=== PATIENT | female | born 1940 | race Caucasian/White ===

== ENCOUNTER 2021-09-22 07:56 | Observation (INO) | payer MEDICARE, SELFPAY ==
[2021-09-22] VITALS (8 sets, daily range): BP systolic 147–155; BP diastolic 61–116; PULSE 86–106; RESP 16–20; TEMP 36.8–37.7; O2SAT 97–98; BMI 20.3
--- NOTE | ~2021-09-22 | CT_ITS ---
EXAMINATION: CT brain wo con DATE: 09/22/2021 08:55 INDICATION: Altered mental status. Fall. TECHNIQUE: Computed tomography (CT) of the head was performed without intravenous contrast. The mA wa s adjusted according to patient size. Iterative reconstruction technique was employed. The dose-lengt h product was 605.33 mGy-cm. COMPARISON: None FINDINGS: There are scattered areas of low attenuation in the cerebral white matter, which is within normal limits for the patient's age. There is no intracranial hemorrhage, acute infarction, or abnorm al intracranial mass lesion. The ventricles are normal in size. There are likely changes of ocular le ns replacement surgeries. There is mild mucosal thickening in the paranasal sinuses. The mastoid air cells are normal. IMPRESSION: 1. Normal aging brain. Reviewed, dictated and finalized at location A. IMPRESSION: 1. Normal aging brain.
--- NOTE | ~2021-09-22 | CT_ITS ---
EXAMINATION: CT cervical spine wo con DATE: 09/22/2021 08:55 INDICATION: Neck injury. Fall. TECHNIQUE: Computed tomography (CT) of the cervical spine was performed without intravenous contrast. Automated exposure control and iterative reconstruction technique were employed. The dose-length pro duct was 120.53 mGy-cm. COMPARISON: None FINDINGS: There is scarring at the lung apices. Bone alignment is normal. There is interbody fusion a t C2-C3. There is mildly decreased disc height at C3-C4 and C4-C5. There is severely decreased disc h eight at C5-C6 and C6-C7 with endplate remodeling. There is mild chronic anterior wedging of T1 verte bral body. The following disc levels are specifically discussed: C2-C3: There is no uncovertebral joint osteoarthritis. There is ankylosis of the facet joints with mi ld left hypertrophy. There is no neural foraminal stenosis. There is no central canal stenosis. C3-C4: There is mild bilateral uncovertebral joint osteoarthritis. There is severe bilateral facet lisa int osteoarthritis. There is mild bilateral neural foraminal stenosis. There is no central canal sten osis. C4-C5: There is moderate right and mild left uncovertebral joint osteoarthritis. There is severe bila teral facet joint osteoarthritis. There is mild bilateral neural foraminal stenosis. There is no cent ral canal stenosis. C5-C6: There is severe bilateral uncovertebral joint osteoarthritis. There is severe bilateral facet joint osteoarthritis. There is mild bilateral neural foraminal stenosis. There is mild central canal stenosis. C6-C7: There is severe bilateral uncovertebral joint osteoarthritis. There is severe bilateral facet joint osteoarthritis. There is mild bilateral neural foraminal stenosis. There is mild central canal stenosis. C7-T1: There is no uncovertebral joint osteoarthritis. There is severe bilateral facet joint osteoart hritis. There is mild bilateral neural foraminal stenosis. There is no central canal stenosis. IMPRESSION: 1. No fracture. 2. Severe cervical spondylosis. Reviewed, dictated and finalized at location A.
--- NOTE | ~2021-09-22 | XR_ITS ---
EXAMINATION: XR hip BI 2V w AP pelvis DATE: 09/22/2021 08:55 INDICATION: Pelvis pain. Fall. TECHNIQUE: An anteroposterior view of the pelvis and 2 views of each hip were obtained. COMPARISON: None. FINDINGS: There is lumbar levocurvature and severe spondylosis. No fracture. There is mild osteoarthr itis of the hips. IMPRESSION: 1. Mild osteoarthritis of the hips. Reviewed, dictated and finalized at location A.
--- NOTE | ~2021-09-22 | XR_ITS ---
EXAMINATION: XR wrist LT min 3V DATE: 09/22/2021 08:55 INDICATION: Left wrist pain and swelling. Fall. TECHNIQUE: 4 views of left wrist were obtained. COMPARISON: None. FINDINGS: Bone alignment is normal. No fracture. There is severe osteoarthritis of first carpometacar pal joint and mild osteoarthritis of triscaphe joint. IMPRESSION: 1. Particular osteoarthritis. Reviewed, dictated and finalized at location A.
--- NOTE | 2021-09-22 08:00 | ECG_ITS ---
Measurements Intervals [place] Rate: 102 P: LA: 0 QRS: 70 QRSD: 77 T: 89 QT: 352 QTc: 459 Interpretive Statements ATRIAL FIBRILLATION WITH RAPID VENTRICULAR RESPONSE ST DEVIATION AND MODERATE T-WAVE ABNORMALITY, CONSIDER LATERAL ISCHEMIA [-0.1+ mV T- WAVE IN I/aVL/V5/V6] NO PREVIOUS ECG AVAILABLE FOR COMPARISON Electronically Signed On 09-22-2021 14:24:41 CDT by Mumtaz Hall M.D.
--- NOTE | 2021-09-22 08:02 | ED.GENADULT ---
HPI - General Adult General Chief complaint: Fall Stated complaint: ambulance Time Seen by Provider: 09/22/21 08:00 History of Present Illness HPI narrative: Kristy is an 80F with dementia and an unknown PMH, (likely Afib given meds) that was brought in after a fall. She was found down on the ground by staff at the [facility]. She does not remember the fall or how long she has been down there. She says she hurts a little bit in the left hip but otherwise denies pain. She continuously asks why she is here. She has a lot of bruising on her left wrist. Related Data Home Medications Medication Instructions Recorded Confirmed aspirin 81 mg tablet,delayed 81 mg PO DAILY 09/22/21 09/22/21 release digoxin 250 mcg (0.25 mg) tablet 250 mcg PO DAILY 09/22/21 09/22/21 diltiazem HCl 120 mg tablet 120 mg PO BID 09/22/21 09/22/21 quetiapine 50 mg tablet 50 mg PO BID 09/22/21 09/22/21 Allergies Allergy/AdvReac Type Severity Reaction Status Date / Time sertraline [From Zoloft] Allergy Unknown Unknown Verified 09/22/21 09:57 Review of Systems Review of Systems: ROS unobtainable: Yes unobtainable due to mental status Exam Const: General: no acute distress and confusion Nutritional Appearance: well nourished Other: Oriented to person only HENMT: Head: contusion (Left orbit) Ears: external ears normal Face and sinus: normal facial exam Mouth: Yes Normal oral and palatal mucosa present Eyes: Conjunctivae: conjunctivae normal Pupils: Equal, round and reactive pupils present EOM: EOMs intact bilaterally Neck: Other: Does not tolerate a C coller. No midline tenderness. She was looking all around the room before I came in the room Chest: Other: Normal to inspection Resp: Effort & Inspection: normal respiratory effort Auscultation: clear to auscultation bilaterally Cardio: Rate: tachycardic Rhythm: abnormal rhythm irregularly irregular GI: Other: No TTP Skin: General skin exam: normal color Rashes: no rashes Neuro: General: moves all extremities, no meningeal signs, no focal motor deficits and CN's II-XI intact bilaterally Extrem: Other: Left wrist is swollen and has a lot of bruising Psych: Other: oriented to person only Course Course Emergency Course: Ordered CT head and neck, labs and EKG EKG showed Afib with a rate of 102, ST depression in V4-6 Labs showed mild hypokalemia, and a mildly elevated CK and elevated BNP. CT Head and neck and radiographs were unremarkable for acute pathology. I called for admission for AMS from a mild TBI and [facility] accepted. Vital Signs Vital signs: Vital Signs Temperature 98.4 F 09/22/21 07:56 Pulse Rate 100 09/22/21 07:56 Respiratory Rate 20 09/22/21 07:56 Blood Pressure 151/68 H 09/22/21 07:56 Pulse Oximetry 98 09/22/21 07:56 Oxygen Delivery Room Air 09/22/21 07:56 Temperature 98.4 F 09/22/21 09:54 Pulse Rate 86 09/22/21 09:54 Respiratory Rate 20 09/22/21 09:54 Blood Pressure 148/68 H 09/22/21 09:54 Pulse Oximetry 98 09/22/21 09:54 Oxygen Delivery Room Air 09/22/21 09:54 Medical Decision Making Vital Signs Vital Signs: Vital Signs Temperature 98.4 F 09/22/21 07:56 Pulse Rate 100 09/22/21 07:56 Respiratory Rate 20 09/22/21 07:56 Blood Pressure 151/68 H 09/22/21 07:56 Pulse Oximetry 98 09/22/21 07:56 Oxygen Delivery Room Air 09/22/21 07:56 Temperature 98.4 F 09/22/21 09:54 Pulse Rate 86 09/22/21 09:54 Respiratory Rate 20 09/22/21 09:54 Blood Pressure 148/68 H 09/22/21 09:54 Pulse Oximetry 98 09/22/21 09:54 Oxygen Delivery Room Air 09/22/21 09:54 Lab Data Result diagrams: 09/22/21 08:16 09/22/21 08:16 Labs: Lab Results 09/22/21 09/22/21 09/22/21 Range/Units 08:15 08:16 08:16 WBC 12.0 H (4.8-10.8) K/mm3 RBC 4.24 (4.20-5.40) M/mm3 Hgb 12.4 (11.7-13.8) g/dL Hct 38.0 (35.0-42.0) % MCV 89.6 (78.0-
[2021-09-22 08:25] LABS: Basophils Absolute Auto 0.04 K/mm3 (0.00-0.10); Basophils Percent Auto 0.3 % (0.0-1.0); Eosinophils Absolute Auto 0.04 K/mm3 (0.02-0.50); Eosinophils Percent Auto 0.3 % (1.0-6.0); Hemoglobin 12.4 g/dL (11.7-13.8); Immature Granulocyte Absolute 0.06 K/mm3 (0.00-0.00); Immature Granulocyte Percent A 0.5 % (0.0-0.0); Lymphocytes Absolute Auto 0.75 K/mm3 (1.10-4.50); Lymphocytes Percent Auto 6.2 % (18.0-42.0); Mean Corpuscular HGB Conc 32.6 g/dL (32.0-36.0); Mean Corpuscular Hemoglobin 29.2 pg (27.0-31.0); Mean Corpuscular Volume 89.6 fL (78.0-102.0); Mean Platelet Volume 10.5 fl (9.2-11.8); Monocytes Absolute Auto 0.67 K/mm3 (0.10-0.90); Monocytes Percent Auto 5.6 % (2.0-11.0); Neutrophils Absolute Auto 10.5 K/mm3 (1.7-7.2); Neutrophils Percent Auto 87.1 % (50.0-70.0); Platelet Count Result 218 K/mm3 (150-420); Red Blood Count 4.24 M/mm3 (4.20-5.40); Red Cell Distribution Width 14.2 % (11.6-14.4)
[2021-09-22 08:42] LABS: Appearance Urine Clear (Clear); Bilirubin Urine Negative (Negative); Color Urine Light Yellow (Yellow); Glucose Urine UA Negative (Negative); Ketones Urine 1+ (Negative); Leukocyte Esterase Ur Negative (Negative); Nitrate Urine Negative (Negative); Protein Urine Negative (Negative); Specific Grav Ur 1.015 (1.010-1.020); pH Urine 5.5 (5.0-8.0)
[2021-09-22 08:47] LABS: Alanine Aminotransferase 19 U/L (14-59); Alkaline Phosphatase 138 U/L (46-116); Anion Gap 8 mmol/L (8-16); Aspartate Amino Transferase 22 U/L (15-37); Bilirubin,Total 0.6 mg/dL (0.00-1.00); Blood Urea Nitrogen 16 mg/dL (7-18); Carbon Dioxide 26 mmol/L (21-32); Chloride 106 mmol/L (98-108); Creatine Kinase 726 U/L (26-192); Estimated Glomerular Filt Rate > 60; Ethanol 3 mg/dL (0-6); Glucose 130 mg/dL (70-99); Influenza Control Valid (Valid); Osmolality Calculated 293 mOsm/kg (285-295); Potassium 3.4 mmol/L (3.5-5.1); Sodium 140 mmol/L (136-145); Total Protein 7.7 g/dL (6.4-8.2); Troponin I 17.1 ng/L (0.00-60.4)
[2021-09-22 08:52] LABS: Thyroid Stimulating Hormone 1.56 uIU/mL (0.36-3.74)
[2021-09-22 08:52] LABS: NT Pro B Type Natriuretic Pept 1128 pg/mL (0-450)
[2021-09-22 08:58] LABS: Add Urine Microscopic? YES; Blood Urine Trace-Intact (Negative); Squamous Epithelial Cell Urine Few /hpf (Few); WBC Urine 0-3 /hpf (0-3)
[2021-09-22 08:59] LABS: Amphetamine Screen Urine Negative (Negative); Bacteria Urine Trace /hpf; Barbiturate Screen Urine Negative (Negative); Benzodiazepines Screen Urine Negative (Negative); Cannabinoid Screen Urine Negative (Negative); Cocaine Screen Urine Negative (Negative); Methadone Screen Urine Negative (Negative); Mucus Urine Few /lpf; Opiate Screen Urine Negative (Negative); Phencyclidine Screen Urine Negative (Negative)
[2021-09-22 09:08] LABS: Lactic Acid Reflex 1.7 mmol/L (0.4-2.0)
[2021-09-22 10:18] LABS: SARS-CoV-2 RNA PCR Negative (Negative)
--- NOTE | 2021-09-22 10:58 | PHAR ---
SPOKE WITH [facility] IN [place]. PT. TAKES DIGOXIN 250MCG DAILY, DILTIAZEM REGULAR TABS 120MG BID, AND QUETIAPINE 50MG TAB 1.5 TABS (75MG) BID PER [facility]. PT. DID NOT TAKE HER DOSES THIS MORNING YET PER NURSING. TLS
[2021-09-22] MEDS: DIGOXIN 250 MCG TABLET PO (11:36)
--- NOTE | 2021-09-22 11:36 | P.HP_ITS ---
H&P: HPI History of Present Illness Date/Time: 09/22/21 1130 Chief Complaint: Fall, Weakness, Dementia Narrative: This is a 80 year old female that lives in group home who has had a fall for a undetermined amount of time. Patient is confused and will need to be evaluated by physical therapy and placement for moth exterminator care. Patient Past Medical history is AFib, Dementia and Hypertension. Review of Systems Review of Systems: Fall, Bruised face and wrist PMFSH Family History Family History (Updated 09/22/21 @ 10:55 by Yanira Duran RN) Other Unknown family medical history Social History Social History Smoking status: Unknown if ever smoked Second hand tobacco smoke exposure: No Alcohol intake: never Substance use: never Gender identity (if verbalized by the patient): Female Sexual Orientation (if Verbalized by the Patient): Straight or Heterosexual Spiritual care concerns: No Comments At time as signature, I have reviewed and agree with nursing past medical, social, surgical and family history. Please see nursing chart for further information. There is no relevant family history pertinent to the presenting complaint. Meds Home Medications and Allergies Home Medications Medication Instructions Recorded Confirmed Type alprazolam 0.25 mg tablet 0.25 mg PO HS PRN Anxiety 09/22/21 09/22/21 History aspirin 81 mg tablet,delayed 81 mg PO DAILY 09/22/21 09/22/21 History release digoxin 250 mcg (0.25 mg) tablet 250 mcg PO DAILY 09/22/21 09/22/21 History diltiazem HCl 120 mg tablet 120 mg PO BID 09/22/21 09/22/21 History quetiapine 50 mg tablet 75 mg PO BID 09/22/21 09/22/21 History Allergies Allergy/AdvReac Type Severity Reaction Status Date / Time sertraline [From Zoloft] Allergy Unknown Unknown Verified 09/22/21 09:57 Exam Narrative: GENERAL: Ill-appearing, well-nourished, and in no acute distress. HEAD:Normocephalic, atraumatic. EYES: Bruised eyes on the left and some facial brusing noted CHEST: No respiratory distress noted SKIN: Warm, dry, no rash. NEURO: No focal deficits. Alert and confused x1-2. Assessment and Plan Assessment and plan (1) Mild TBI: Code(s): S06.9X9A - Unspecified intracranial injury with loss of consciousness of unspecified duration, initial encounter Status: Acute Assessment and Plan: * Fall hit head no loss of consciousness * No neurodeficits * Continue to be on fall precaution (2) Hypokalemia: Code(s): E87.6 - Hypokalemia Status: Acute Assessment and Plan: * Initially 2.9 resolved 3.6 * K rider given plus oral potassium (3) Fall: Code(s): W19.XXXA - Unspecified fall, initial encounter Status: Acute Assessment and Plan: * Monitor patient for fall (4) Dementia: Code(s): F03.90 - Unspecified dementia without behavioral disturbance Status: Acute Assessment and Plan: * Advised to group home or memory care unit family declined
[2021-09-22] MEDS: dilTIAZem HCL 30 MG TABLET 120 MG PO ×2 (11:37→20:57)
[2021-09-22] MEDS: QUEtiapine FUMARATE 25 MG TABLET 75 MG PO ×2 (11:37→20:57)
[2021-09-22] MEDS: ASPIRIN 81 MG ENTERIC TABLET PO (11:37)
[2021-09-22] MEDS: ALPRAZolam (*CRX) 0.25 MG TABLET PO (23:39)
[2021-09-23 05:10] LABS: Hematocrit 36.4 % (35.0-42.0); Hemoglobin 12.1 g/dL (11.7-13.8); Mean Corpuscular HGB Conc 33.2 g/dL (32.0-36.0); Mean Corpuscular Volume 90.1 fL (78.0-102.0); Mean Platelet Volume 10.6 fl (9.2-11.8); Platelet Count Result 205 K/mm3 (150-420); Red Blood Count 4.04 M/mm3 (4.20-5.40); Red Cell Distribution Width 14.3 % (11.6-14.4); White Blood Count 7.3 K/mm3 (4.8-10.8)
[2021-09-23 05:14] LABS: Anion Gap 8 mmol/L (8-16); Blood Urea Nitrogen 10 mg/dL (7-18); Calcium 8.4 mg/dL (8.5-10.1); Carbon Dioxide 26 mmol/L (21-32); Chloride 106 mmol/L (98-108); Estimated CRCL calculation 49 ml/min; Estimated Glomerular Filt Rate > 60; Glucose 104 mg/dL (70-99); Osmolality Calculated 289 mOsm/kg (285-295); Potassium 2.9 mmol/L (3.5-5.1); Sodium 140 mmol/L (136-145)
--- NOTE | 2021-09-23 06:45 | PC.NURSE ---
Pt's sister called and asked how pt's night was; She was told that her nurse would give her a call when she was finished with report.
--- NOTE | 2021-09-23 07:02 | PC.NURSE ---
Spoke with Lucia, patient POA, given patient update. Oncoming nurse, Amara informed and given phone number.
[2021-09-23 08:00] VITALS: BP 131/80; PULSE 88; RESP 16; TEMP 36.8; O2SAT 95
[2021-09-23] MEDS: dilTIAZem HCL 30 MG TABLET 120 MG PO (08:08)
[2021-09-23 08:09] VITALS: PULSE 68
[2021-09-23] MEDS: DIGOXIN 250 MCG TABLET PO (08:09)
[2021-09-23] MEDS: ASPIRIN 81 MG ENTERIC TABLET PO (08:10)
[2021-09-23] MEDS: QUEtiapine FUMARATE 25 MG TABLET 75 MG PO (08:10)
[2021-09-23] MEDS: KCL 20 MEQ/SW 100 ML 100 ML 50 MEQ IVPB (09:46)
[2021-09-23] MEDS: POTASSIUM CHLORIDE 20 MEQ TABLET 40 MEQ PO (09:46)
[2021-09-23] MEDS: KCL 20 MEQ/SW 100 ML 100 ML 50 MEQ (10:01)
[2021-09-23] MEDS: POTASSIUM CHLORIDE 20 MEQ TABLET (10:02)
--- NOTE | 2021-09-23 10:05 | PM.DS ---
DS: Admitting Diagnosis Discharge Date 09/23/2021 Admitting Diagnosis Fall, WEakness, confusion DS: Discharge Diagnosis Discharge Diagnosis (1) Mild TBI: Code(s): S06.9X9A - Unspecified intracranial injury with loss of consciousness of unspecified duration, initial encounter Status: Acute Assessment and Plan: Fall hit head no loss of consciousness No neurodeficits Continue to be on fall precaution (2) Hypokalemia: Code(s): E87.6 - Hypokalemia Status: Acute Assessment and Plan: Initially 2.9 resolved 3.6 K rider given plus oral potassium Labs to be drawn on Saturday (3) Fall: Code(s): W19.XXXA - Unspecified fall, initial encounter Status: Acute Assessment and Plan: Monitor patient for fall (4) Dementia: Code(s): F03.90 - Unspecified dementia without behavioral disturbance Status: Acute Assessment and Plan: Advised to senior living or memory care unit family declined DS: Summary Hospital Course Reason for hospitalization: fall, Concussion Hospital Course: This is a 80-year-old female who has a history of dementia who lives in assisted living who had a fall and hit her face for an unknown amount of time. Patient was evaluated in the emergency room with a head CT completed with no fractures noted patient has increased weakness as well as is very demented. Patient was seen by physical therapy and is a 1 assist which is at patient's baseline patient has to be reminded to feed herself or to eat and which is at patient's basic baseline bruising is noted all throughout her face patient denies any pain although not for sure she is cognitively able to understand that she is in pain. Patient was Over 24 hours she was hypokalemic and received a K rider and some oral potassium in which her potassium level flower to 3.6 she will have labs redrawn on Saturday CBC BMP and should be sent to her primary care provider. Time Spent with Patient Time attestation: Total time spent providing and/or coordinating discharge services: Exam Narrative: GENERAL: Ill-appearing, well-nourished, and in no acute distress. HEAD:Normocephalic, atraumatic. EYES: PERRLA and EOMI. Bruised eyes on the left and some facial brusing noted ENT: Nares clear, no rhinorrhea or epistaxis. Mucous membranes moist. NECK: Supple. CHEST: Clear to auscultation. No respiratory distress. HEART: Regular rate and rhythm. Normal peripheral pulses. ABDOMEN: Soft, nontender, nondistended, normal active bowel sounds. EXTREMITIES: Normal range of motion. No edema. Bruising noted on her left arm SKIN: Warm, dry, no rash. NEURO: No focal deficits. Alert and confused x1-2. DS: Data Data Completed and Pending Labs on day of discharge: Labs from last 24 hours 09/23/21 09/23/21 09/22/21 04:58 04:58 09:28 WBC 7.3 RBC 4.04 L Hgb 12.1 Hct 36.4 MCV 90.1 MCH 30.0 MCHC 33.2 RDW 14.3 Plt Count 205 MPV 10.6 Sodium 140 Potassium 2.9 L Chloride 106 Carbon Dioxide 26 Anion Gap 8 BUN 10 Creatinine 0.76 Estim Creat Clear Calc 49 Estimated GFR > 60 Glucose 104 H Calculated Osmolality 289 Calcium 8.4 L SARS-CoV-2 RNA (RT-PCR) Negative Blood Type Antibody Screen 09/22/21 08:16 WBC RBC Hgb Hct MCV MCH MCHC RDW Plt Count MPV Sodium Potassium Chloride Carbon Dioxide Anion Gap BUN Creatinine Estim Creat Clear Calc Estimated GFR Glucose Calculated Osmolality Calcium SARS-CoV-2 RNA (RT-PCR) Blood Type A Negative Antibody Screen Negative Discharge Plan Discharge Attending physician on discharge: Chago Moreno Discharging Clinician: Vivi Bills Patient Disposition: Home Health Service Activity: may shower, no driving and as tolerated Diet: heart healthy Discharge Instructions: Per Care Coordination: Residential Home Health: nursing and
[2021-09-23 12:36] LABS: Potassium 3.6 mmol/L (3.5-5.1)
--- NOTE | 2021-09-23 14:48 | PC.NURSE ---
Patient in recliner with feet elevated. Patient requires frequent reminders to call for help with ambulation. Patient needs prompting for every task due to dementia. Bed and chair alarm in place to ensure patient safety.
[2021-09-23 16:00] VITALS: BP 137/89; PULSE 88; RESP 16; TEMP 37.2; O2SAT 98
--- NOTE | 2021-09-23 18:31 | PC.NURSE ---
talked with patient's sisters several times during the day. they claim, they wished they would of listened to dr quintero 6 months ago when he wanted them to put her in a [facility] in [place]. they claim he told them she would not remember that they did this in 1/2 hour afterwards. we didn't think she needed it. they claim they will let [facility] come now. they claim they have hired private help for her at [facility]. they also claim [facility] in [place] will be evaluating her soon. paperwork faxed to [facility] as they requested.
--- NOTE | 2021-09-25 10:25 | PC.NURSE ---
[facility] employee states patient received discharge instructions and is having no issues.
== END 2021-09-23 18:10 | disposition home health service (06) ==
LOC: CHSED 09:19 → CHS2ND 09:30
PROVIDERS: Nurse Practitioner Family; Admitting Provider Internal Medicine; Emergency Provider Family Medicine; PCP Internal Medicine; Visit Provider Internal Medicine
DX: S06.9X0A Unspecified intracranial injury without loss of consciousness, initial encounter (principal); E87.6 Hypokalemia; I48.20 Chronic atrial fibrillation, unspecified; I10 Essential (primary) hypertension; F03.90 Unspecified dementia, unspecified severity, without behavioral disturbance, psychotic disturbance, mood disturbance, and anxiety; W19.XXXA Unspecified fall, initial encounter; Z20.822 Contact with and (suspected) exposure to COVID-19; Z79.899 Other long term (current) drug therapy; Z79.82 Long term (current) use of aspirin
CPT/HCPCS: 36415; 70450; 72125; 73110; 73521; 80048; 80053; 80307; 81001; 82550; 83605; 83735; 83880; 84132; 84443; 84484; 85025; 85027; 86850; 86900; 86901; 87804; 93005; 96365; 96366; 97161; 97165; 99285; A9270; C9803; G0378; J3480; U0003; U0005

== ENCOUNTER 2021-09-28 09:17 | Outpatient (NON) | payer MEDICARE, SELFPAY ==
[2021-09-28 09:45] LABS: Hematocrit 34.3 % (35.0-42.0); Hemoglobin 11.3 g/dL (11.7-13.8); Mean Corpuscular HGB Conc 32.9 g/dL (32.0-36.0); Mean Corpuscular Hemoglobin 29.9 pg (27.0-31.0); Mean Corpuscular Volume 90.7 fL (78.0-102.0); Mean Platelet Volume 11.2 fl (9.2-11.8); Platelet Count Result 232 K/mm3 (150-420); Red Blood Count 3.78 M/mm3 (4.20-5.40); Red Cell Distribution Width 14.5 % (11.6-14.4); White Blood Count 7.2 K/mm3 (4.8-10.8)
[2021-09-28 10:19] LABS: Neutrophils Percent Manual 65 % (46-73); Total Cells Counted 100
[2021-09-28 10:20] LABS: Band Neutrophils Percent 0 % (0-6); Eosinophils Percent Manual 14 % (1-6); Lymphocytes Absolute Manual 1.22 K/mm3 (1.1-4.5); Lymphocytes Percent Manual 17 % (18-44); Monocytes Absolute Manual 0.28 K/mm3 (0.1-0.90); Monocytes Percent Manual 4 % (3-9); Neutrophils Absolute Manual 4.68 K/mm3 (1.7-7.2); Platelet Estimate Adequate (Adequate)
[2021-09-28 10:37] LABS: Alanine Aminotransferase 26 U/L (14-59); Albumin Level 3.2 g/dL (3.4-5.0); Alkaline Phosphatase 109 U/L (46-116); Anion Gap 5 mmol/L (8-16); Aspartate Amino Transferase 22 U/L (15-37); Bilirubin,Total 0.5 mg/dL (0.00-1.00); Blood Urea Nitrogen 11 mg/dL (7-18); Calcium 8.6 mg/dL (8.5-10.1); Carbon Dioxide 28 mmol/L (21-32); Chloride 106 mmol/L (98-108); Estimated Glomerular Filt Rate > 60; Glucose 99 mg/dL (70-99); Osmolality Calculated 287 mOsm/kg (285-295); Potassium 4.1 mmol/L (3.5-5.1); Sodium 139 mmol/L (136-145); Total Protein 6.1 g/dL (6.4-8.2); Vitamin B12 207 pg/mL (193-986)
[2021-09-29 15:32] LABS: Ferritin 71 ng/mL (8-252); Iron 68 ug/dL (50-170)
== END 2021-09-28 09:18 | disposition home or self-care (01) ==
LOC: CHSLAB 09:18
PROVIDERS: PCP Internal Medicine; Visit Provider Internal Medicine
DX: D64.9 Anemia, unspecified (principal); Z79.899 Other long term (current) drug therapy
CPT/HCPCS: 36415; 80053; 82607; 82728; 83540; 85025